=== PATIENT | female | born 1960 ===

== ENCOUNTER 2017-08-13 10:37 | Day surgery (SDC) | payer MEDICAID, MEDICARE ==
[2017-08-01 12:07] VITALS: BMI 30.4
--- NOTE | 2017-08-13 11:18 | CP.SDSHP ---
Same Day Surgery H & P - History Proposed Procedure: Left ankle arthroscopy, Plantar Fasciotomy Pre-Op Diagnosis: Left ankle synovitis, plantar fasciitis - Allergies Allergies: Allergies acetaminophen [From Percocet] Allergy (Verified 01/24/16 06:50) RASH oxycodone HCl [From Percocet] Allergy (Verified 01/24/16 06:50) RASH prunes Allergy (Verified 01/24/16 06:50) RASH bernabe beans Allergy (Uncoded 01/24/16 06:51) RASH - {Optional Preform as Required} Ortho: Other - Date & Time Date: 08/13/17 Time: 11:18 Short Stay Discharge - Short Stay Discharge Admitting Diagnosis/Reason for Visit: M72.21/M65.9 Disposition: HOME/ ROUTINE Referrals: Mu Sorto MD [Primary Care Provider] - Additional Instructions (Diet, Activity): -Patient in good/stable condition for discharge home -Pt to resume medications per medical reconciliation -Resume regular diet Please keep dressing clean, dry, & intact to surgical site -Use plastic bag over bandage for showering -Wear post op shoe at all times when ambulating -Call clinic if you see signs of infection (redness, swelling, malodor) -Please make an appointment to see Dr. Rodriguez in office/clinic within 1 week for post-op check Progress Note/Discharge Note with Instructions: - Patient evaluated bedside in recovery s/p surgical procedure. - After surgical procedure patient in NAD - (+) Void, (+) Appetite - Capillary refill time <3s and NVSI intact. - Patient denies complaints at this time - Post operative instructions and plan of care explained to patient at length. - Pt. acknowledges understanding. - Patient stable for DC per podiatric surgery
--- NOTE | 2017-08-13 11:23 | CP.PCM.PN ---
Subjective - Date & Time of Evaluation Date of Evaluation: 08/13/17 Time of Evaluation: 11:19 - Subjective Subjective: 57 year old female patient with PMHx of GERD was seen and evaluated in [facility] prior to left ankle procedure. Patient confirms the NPO status and reports that her last meal was at 2 AM. Denies of any adverse reaction to anesthesia. Denies of having any recent F/N/V/C/SOB/CP/headache. PMHx: GERD PSHx: Right Lobe Thyroidectomy, tonsilectomy, adenoid surgery, multiple orthopedic surgeries, C-sections, Cholecystectomy Allergies: Tylenol, Percocet SHx: Denies smoking, EtOH or illicit drug usage Objective - Vital Signs/Intake and Output Vital Signs (last 24 hours): Temp Pulse Resp BP Pulse Ox 98.3 F 83 20 116/70 98 08/01/17 12:04 08/01/17 12:04 08/01/17 12:04 08/01/17 12:04 08/01/17 12:04 - Constitutional Appears: Well, Non-toxic, No Acute Distress - Extremities Exam Additional comments: VASC: DP/PT pulses are palpable 2/4 B/L. Cap refill time: < 3 seconds to all digits. Skin temperature warm to cool from proximal to distal. no pitting or non -pitting edema noted DERM: Surgical scar noted on the medial ankle from the previous surgery, no open lesions, no inter digital maceration, nails are cut to hygenic length, no clinical suspicion of active infection NEURO: Epicritic and protective sensation intact ORTHO: Pain present during AROM and PROM at the - Neurological Exam Neurological Exam: Alert, Awake, Oriented x3 - Psychiatric Exam Psychiatric exam: Normal Affect, Normal Mood Assessment and Plan - Assessment and Plan (Free Text) Assessment: 57 year old female patient with PMHx of GERD was evaluated in [facility] prior to left ankle procedure. Plan: Pt was seen and examined in [facility] Pt NPO status was confirmed All pre-op testing and clearance in chart Pt has exhausted all conservative treatment at this time and is opting for surgical intervention Pt was explained procedure and post-operative course All pt's questions were answered to satisfaction No guarantees were made Pt understands all risks, benefits and complications of procedure Pt will follow-up with Dr. Rodriguez within 1 week of surgery
[2017-08-13] MEDS ORDERED: Bupivacaine 0.5% Inj(30mL) IJ ONE (11:27)
[2017-08-13] MEDS ORDERED: Lidocaine 1% Inj (20ml) IJ ONE (11:27)
[2017-08-13] MEDS ORDERED: ceFAZolin 2 GM in Sodium Chloride 0.9% 100 ML IVPB ONE (11:27)
[2017-08-13] MEDS ORDERED: Sodium Chloride 0.9% 1,000 ML IV SCH (11:30)
[2017-08-13 12:04] LABS: BLOOD UREA NITROGEN 20 mg/dl (7-17); GFR AFRICAN-AMERICAN > 60; GFR NON-AFRICAN AMERICAN > 60
[2017-08-13] MEDS ORDERED: Bupivacaine 0.5% Inj(30mL) ONE (12:34)
[2017-08-13] MEDS ORDERED: Lidocaine 1% Inj (20ml) ONE (12:34)
[2017-08-13] MEDS ORDERED: EPINEPHrine 1:1000 Nasal Sol(30mL) ONE (12:40)
[2017-08-13 12:42] VITALS: RESP 18
[2017-08-13] MEDS ORDERED: Lactated Ringer's 1,000 ML IV ONE (13:08)
--- NOTE | 2017-08-13 14:30 | PCM.SURG1 ---
Surgeon's Initial Post Op Note - Surgeon's Notes Surgeon: Dr. Rodriguez Tube Maker: Dr. Cao PGY-3, Dr. Mac PGY-2, Dr. White PGY-2 Type of Anesthesia: General LMA Anesthesia Administered By: Dr. Culp Pre-Operative Diagnosis: left ankle synovitis, plantar fasciitis Operative Findings: see dictation. 4-0 nylon Post-Operative Diagnosis: same Operation Performed: left ankle arthroscopy, left foot tenex debridement procedure for plantar fasciitis Specimen/Specimens Removed: soft tissue Estimated Blood Loss: EBL {In ML}: 2 Blood Products Given: N/A Drains Used: No Drains Post-Op Condition: Good Date of Surgery/Procedure: 08/13/17 Time of Surgery/Procedure: 13:00
[2017-08-13] MEDS ORDERED: Oxycodone/Acetaminophen 5/325 mg Tab PO PRN (14:31)
[2017-08-13] MEDS ORDERED: DiphenhydrAMINE 50 mg/ml Inj IVP STA (17:17)
[2017-08-13] MEDS ORDERED: DiphenhydrAMINE 50 mg/ml Inj ONE (17:20)
[2017-08-13 18:40] VITALS: BP 128/76; PULSE 67; TEMP 97.8; O2SAT 96
--- NOTE | 2017-08-18 08:27 | OP ---
PROCEDURE DATE: 08/13/2017 PREOPERATIVE DIAGNOSES: 1. Left ankle synovitis. 2. Left foot plantar fasciitis. POSTOPERATIVE DIAGNOSES: 1. Left ankle synovitis. 2. Left foot plantar fasciitis. PROCEDURE PERFORMED: 1. Left ankle arthroscopy and synovectomy. 2. Left foot plantar fasciotomy. SURGEON: Presley Rodriguez DPM [employer]INTENANCE: Yogi Cao DPM, PGY-3; Nikki Mac DPM, PGY-2 and Yanci White DPM, PGY-2. TYPE OF ANESTHESIA: General. ANESTHESIOLOGIST: Inga Culp MD INDICATIONS: This patient is a 57-year-old female with the aforementioned diagnosis. The patient has been treated by Dr. Rodriguez in the outpatient clinic where she has exhausted multiple forms of conservative treatment options. The patient seeks surgical intervention at this time. All alternatives, benefits, complications and risks were explained to the patient to her understanding. All questions were addressed and answered. No guarantees were given nor implied. The consent was signed and the n.p.o. status was confirmed prior to bringing the patient to the operating room. OPERATIVE PROCEDURE: The patient was brought into the operating room and placed on the operating room table in a supine position. A pneumatic thigh tourniquet was placed on the patient's left thigh. After induction of general anesthesia, the left lower extremity was prepped and draped in the normal sterile manner and the procedure began. PROCEDURE #1: Left ankle arthroscopy and synovectomy. Attention was directed to the anterior aspect of the patient's left ankle where the tibialis anterior tendon and medial malleolus were palpated. A 15 blade was then utilized to make a stab incision for the medial portal of the ankle arthroscopy, medial to the tibialis anterior tendon in the medial gutter. The incision was then deepened through the superficial and subcutaneous tissues utilizing a blunt hemostat. A trocar and obturator were then inserted into the incision and used to penetrate the medical aspect of the ankle joint capsule. The trocar was then removed from the obturator and the arthroscope was inserted through the cannula. At this time, the ankle joint could be clearly visualized. examination was then performed with the camera and it was noted that there was a significant amount of fibrous banding impinging on the lateral gutter of the ankle. It was also noted that there was a significant amount of fibrotic and synovitic tissue within the ankle joint. Next, the camera was utilized to illuminate the area marked with lateral portal. A stab incision was then with a 15 blade ensuring to not violate any neurovascular structures. The incision was then deepened through the superficial subcutaneous tissue down to the level of the ankle joint capsular with blunt hemostat. Next, a shaver was inserted through the lateral portal and visualized inside of the ankle joint with the camera. A shaver was then utilized to debride all visible synovitis and fibrotic tissue. Attention was then directed to the lateral gutter, where the shaver was utilized to debride the impinging lateral band. Shaver was then removed from lateral portal and a grabber was inserted to further debride lateral band. The grabber was then removed from lateral portal and the shaver was again inserted through the lateral protal to debride any remaining portion of the impinging fibrotic band in lateral gutter and also any remaining synovitis or fibrotic tissue within the ankle joint. It was noted at this time the ankle joint had been adequately debrided of all synovitis and fibrotic tissue and the lateral gutter could be clearly visualized as well as articular surface of the fibula and there was no impingement upon range of motion of the talus. Surgical area was then flushed with copious amounts of sterile normal saline. The camera and shaver were then removed from portal and the skin was reapproximated utilizing 4-0 nylon suture. PROCEDURE #2: Left foot plantar fasciotomy. Attention was directed to the plantar medial aspect of the patient's left foot where a stab incision was made with a #15 blade. The incision was deepened through the superficial and subcutaneous tissue down to the level of the medial band of the plantar fascia. Once the medial band of the plantar fascia was encountered. Ultrasound was fairly utilized to visualize the degenerative portions of the medial plantar fascia was inserted through the incision down to the level of the plantar fascia and visualized utilizing the ultrasound was then manipulated in the proper positioning with diseased portions of the plantar fascia and utilized to debride all the diseased portions of the plantar fascia. were utilized for approximately 2 minutes and 30 seconds of total debridement. Once all fibrotic tissue and diseased tissue had been adequately debrided and visualized under ultrasound, was removed from the surgical area and the surgical area was flushed with copious amounts of sterile normal saline. The skin was reapproximated utilizing 4-0 nylon suture. Postoperative bandages consisted of saline-soaked gauze, DSD, Paige, and Billy bandages. POSTOPERATIVE CONDITION: The patient tolerated the procedure and anesthesia well with no apparent complications or complaints. The patient was escorted from the OR to the recovery room with vital signs stable and neurovascular status intact. The patient will follow up with Dr. Rodriguez, in the outpatient clinic. Yogi Cao DPM Presley Rodriguez DPM
== END 2017-08-13 19:30 | disposition home or self-care (01) ==
LOC: H.OPSURG 10:37
PROVIDERS: ATTEND Podiatrist
DX: R73.03 Prediabetes (principal); E78.5 Hyperlipidemia, unspecified; E03.9 Hypothyroidism, unspecified; K21.9 Gastro-esophageal reflux disease without esophagitis; M72.2 Plantar fascial fibromatosis; Z88.5 Allergy status to narcotic agent; Z90.49 Acquired absence of other specified parts of digestive tract
CPT/HCPCS: 28060; 29999; 36415; 80048; 82948; 97116; 97161; G8978; G8979; G8980; J0171; J0690; J1170; J1200; J1885; J2405; J7030; J7040; J7120